=== PATIENT | female | born 1990 | race Caucasian/White ===

== ENCOUNTER 2021-06-09 10:32 | Observation (INO) ==
[2021-06-09] MEDS ORDERED: Ondansetron ODT 4 MG TAB.RAPDIS SL PRN (13:41)
[2021-06-09] MEDS ORDERED: Naloxone 0.4 MG/ML INJ IVP PRN (13:41)
[2021-06-09] MEDS ORDERED: Melatonin 3 MG TABLET PO PRN (13:41)
[2021-06-09] MEDS: Ringers Solution, Lactated 1,000 ML IVC SCH (14:30)
[2021-06-09] MEDS: Acetaminophen 325 MG TABLET PO PRN ×2 (17:02→23:24)
[2021-06-09] MEDS ORDERED: *HR* Promethazine 25 MG/ML VIAL IM ONE (17:06)
[2021-06-09] MEDS ORDERED: *HR* Heparin 5,000 UNIT/ML VIAL SQ SCH (18:00)
[2021-06-09 19:02] LABS: Hematocrit 24.9 % (35.3-44.9); Hemoglobin 6.8 g/dL (11.5-15.4); Mean Corpuscular HGB Conc 27.3 g/dL (31.6-35.5); Mean Corpuscular Hemoglobin 18.1 pg (28.0-33.3); Mean Corpuscular Volume 66.4 fL (83.0-100.0); Mean Platelet Volume 9.3 fL (9.4-12.4); Platelet Count 366 K/mcL (140-400); Red Blood Count 3.75 M/mcL (3.82-4.97); Red Cell Distribution Width 21.7 % (11.5-14.5); White Blood Count 7.7 K/mcL (4.3-11.1)
[2021-06-09] MEDS ORDERED: 0.9 % Sodium Chloride 250 ML ONE (20:26)
[2021-06-10] MEDS: Ringers Solution, Lactated 1,000 ML IVC SCH (02:53)
[2021-06-10 06:04] LABS: Hematocrit 24.7 % (35.3-44.9); Hemoglobin 6.7 g/dL (11.5-15.4); Mean Corpuscular HGB Conc 27.1 g/dL (31.6-35.5); Mean Corpuscular Hemoglobin 18.7 pg (28.0-33.3); Mean Corpuscular Volume 68.8 fL (83.0-100.0); Mean Platelet Volume 8.8 fL (9.4-12.4); Platelet Count 302 K/mcL (140-400); Red Blood Count 3.59 M/mcL (3.82-4.97); White Blood Count 5.8 K/mcL (4.3-11.1)
[2021-06-10] MEDS ORDERED: 0.9 % Sodium Chloride 250 ML ONE (08:19)
[2021-06-10 09:18] VITALS: O2SAT 94
[2021-06-10 12:06] VITALS: BP 122/71; PULSE 95; TEMP 98.3
[2021-06-10] MEDS: Acetaminophen 325 MG TABLET PO PRN (12:46)
[2021-06-10 13:15] LABS: Red Cell Distribution Width 23.6 % (11.5-14.5)
[2021-06-10 13:16] LABS: Hematocrit 27.6 % (35.3-44.9); Mean Corpuscular Hemoglobin 20.1 pg (28.0-33.3); Mean Corpuscular Volume 69.2 fL (83.0-100.0); Mean Platelet Volume 9.5 fL (9.4-12.4); Platelet Count 168 K/mcL (140-400); Red Blood Count 3.99 M/mcL (3.82-4.97); White Blood Count 6.5 K/mcL (4.3-11.1)
== END 2021-06-10 13:57 | disposition home or self-care (01) ==
LOC: 3BNU → SUATTDRO 13:16
PROVIDERS: ADMIT Internal Medicine; ATTEND Internal Medicine